=== PATIENT | female | born 2000 | race Caucasian/White ===

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

== ENCOUNTER 2018-02-09 20:34 | Emergency (ER) | payer MEDICAID, BC ==
[~2018-02-09] VITALS: Ht 172.7 cm; Wt 80.7 kg
[2018-02-09 20:38] VITALS: BP 130/85
--- NOTE | 2018-02-09 20:40 | NUR ---
ASSUMED CARE OF PT AT THIS TIME. C/O DYSURIA W/ BLADDER AND LOW BACK PAIN X 1 WEEK. AAOX4 WITH EVEN AND STEADY GAIT; PATIENT STATES PAIN OF 6/10 AT THIS TIME; VSS; PATIENT POSITIONED FOR COMFORT; HOB ELEVATED; BEDRAILS UP X2; BED DOWN. ER MD MADE AWARE OF PT STATUS. WILL CONTINUE TO MONITOR.
--- NOTE | 2018-02-09 20:40 | NUR ---
TO BED # 4 AMBULATORY REPORT GIVEN TO JOCELYN PHILIP
--- NOTE | 2018-02-09 21:26 | NUR ---
Dr. Anna evaluating patient at bedside.
[2018-02-09] MEDS ORDERED: KETOROLAC 60 MG/2 ML VIAL IM ONE (21:30)
[2018-02-09 21:45] VITALS: BP 128/84
--- NOTE | 2018-02-09 21:45 | NUR ---
Patient discharged with v/s stable. Written and verbal after care instructions given and explained. Patient alert, oriented and verbalized understanding of instructions. Ambulatory with steady gait. All questions addressed prior to discharge. ID band removed. Patient advised to follow up with PMD. Rx of MOTRIN, PYRIDIUM, AND CIPRO given. Patient educated on indication of medication including possible reaction and side effects. Opportunity to ask questions provided and answered.
== END 2018-02-09 21:45 | disposition home or self-care (01) ==
LOC: MED 20:34
DX: N12 Tubulo-interstitial nephritis, not specified as acute or chronic (principal); J45.909 Unspecified asthma, uncomplicated
CPT/HCPCS: 81002; 81025; 96372; 99283; J1885

== ENCOUNTER 2018-06-20 17:01 | Emergency (ER) | payer BC, MEDICAID ==
[~2018-06-20] VITALS: Ht 172.7 cm; Wt 76.2 kg
[2018-06-20 17:16] VITALS: BP 126/79
--- NOTE | 2018-06-20 17:16 | NUR ---
PT AMBULATED TO ER BED 06
--- NOTE | 2018-06-20 17:25 | NUR ---
17/F BIB FAMILY C/O LIGHTHEADEDNESS/DIZZINESS, LEFT LOWER BACK PAIN X2 WEEKS. REPORTS NAUSEA/VOMITING. DENIES DYSUREA. HX: ANEMIA, ASTHMA, HIGH CHOLESTEROL.PATIENT STATES PAIN OF 5/10 AT THIS TIME; VSS; PATIENT POSITIONED FOR COMFORT; HOB ELEVATED; BEDRAILS UP X2; BED DOWN. ER MD MADE AWARE OF PT STATUS.
--- NOTE | 2018-06-20 17:52 | NUR ---
LAB AT BEDSIDE
[2018-06-20 18:10] LABS: BASOPHILS # (AUTO) 0.1 K/uL (0.00-0.22); BASOPHILS % (AUTO) 1.1 % (0.0-2.0); EOSINOPHILS # (AUTO) 0.1 K/uL (0-0.4); EOSINOPHILS % (AUTO) 2.5 % (0.0-4.0); HEMATOCRIT 41.9 % (36-48); HEMOGLOBIN 14.2 g/dL (12.0-16.0); LYMPHOCYTES % (AUTO) 38.4 % (20.5-51.1); MEAN CORPUSCULAR HEMOGLOBIN 32 pg (27-31); MEAN CORPUSCULAR HGB CONC 34 g/dL (33-37); MEAN CORPUSCULAR VOLUME 93.1 fL (80-94); MONOCYTES # (AUTO) 0.5 K/uL (0.8-1.0); MONOCYTES % (AUTO) 9.8 % (1.7-9.3); NEUTROPHILS # (AUTO) 2.5 K/uL (1.8-7.7); NEUTROPHILS % (AUTO) 48.2 % (42.2-75.2); PLATELET COUNT (AUTO) 278 K/uL (140-450); RED CELL DISTRIBUTION WIDTH 12.4 % (11.6-13.7); WHITE BLOOD COUNT (AUTO) 5.3 K/uL (4.5-11.0)
[2018-06-20 18:18] LABS: APPEARANCE,URINE CLEAR (CLEAR); BILIRUBIN,URINE NEGATIVE (NEGATIVE); BLOOD, URINE NEGATIVE (NEGATIVE); COLOR,URINE YELLOW (YELLOW); LEUKOCYTE ESTERASE ,URINE NEGATIVE (NEGATIVE); NITRITE, URINE NEGATIVE (NEGATIVE); UGLUCOSE NEGATIVE (NEGATIVE)
[2018-06-20 18:45] LABS: ANION GAP 10.3 (8-16); CARBON DIOXIDE 29.9 mmol/L (21-32); CREATININE 0.9 mg/dL (0.6-1.3); POTASSIUM 4.2 mmol/L (3.5-5.1)
[2018-06-20 18:56] LABS: BARBITURATE, URINE NEG. ng/ml (NEG <=200); BENZODIAZEPINE, URINE NEG. ng/mL (NEG <=200); CANNABINOID, URINE NEG. ng/mL (NEG <=50); COCAINE, URINE NEG. ng/mL (NEG <=300); OPIATE, URINE NEG. ng/mL (NEG <=2000); PHENCYCLIDINE SCREEN,URINE NEG. ng/mL (NEG <=25)
[2018-06-20 18:58] LABS: ALBUMIN 3.3 g/dL (3.4-5.0); FREE T4 (FREE THYROXINE) 1.17 ng/dL (0.76-1.46); THYROID STIMULATING HORMONE 2.11 uIU/mL (0.34-3.74); TOTAL BILIRUBIN 0.2 mg/dL (0.0-1.0)
[2018-06-20 19:07] VITALS: BP 119/75
--- NOTE | 2018-06-20 19:07 | NUR ---
Patient discharged with v/s stable. Written and verbal after care instructions given and explained. Patient verbalized understanding. Ambulatory with steady gait. All questions addressed prior to discharge. Advised to follow up with PMD.
== END 2018-06-20 19:07 | disposition home or self-care (01) ==
LOC: MED 17:01
DX: R42 Dizziness and giddiness (principal); R53.1 Weakness; R63.0 Anorexia; E78.00 Pure hypercholesterolemia, unspecified; J45.909 Unspecified asthma, uncomplicated; Z79.899 Other long term (current) drug therapy
CPT/HCPCS: 36415; 80053; 80305; 81003; 81025; 84439; 84443; 85025; 99283; 99284